=== PATIENT | male | born 1950 | race African-American/Black ===

== ENCOUNTER → 2017-11-29 | Outpatient (CLI) | payer MEDICARE, OTHER ==
[~2017-11-29] MED LIST: ALLO300T2 PO; APIX5TAB PO; ASPI81TA24 PO; ATOR80TA45 PO; CARV12.52 PO; EZET10 PO; FOLI400T PO; FOLI800T PO; OMEGCAP PO; SACU1TAB4 PO; VALS1TAB65 PO
--- NOTE | 2017-11-29 17:47 | EKG ---
Date Performed: 11/29/2017 Time Performed: 11:31:08 PTAGE: 67 years EKG: Sinus rhythm Inferior infarct - age undetermined Septal T wave changes are nonspecific Abnormal ECG PREVIOUS TRACING : 10/20/2016 12.59 Compared to prior tracing no significant change DOCTOR: Siobhan Bolanos Interpretating Date/Time 11/29/2017 17:46:45
== END ==
LOC: CPRE 11:11
PROVIDERS: ATTEND Surgery
DX: Z01.810 Encounter for preprocedural cardiovascular examination (principal); I65.23 Occlusion and stenosis of bilateral carotid arteries; R94.31 Abnormal electrocardiogram [ECG] [EKG]
CPT/HCPCS: 93005

== ENCOUNTER 2017-12-01 05:29 | Inpatient (IN) | payer OTHER, MEDICARE ==
[2017-12-01] VITALS (12 sets, daily range): BP systolic 138–158; BP diastolic 64–82; PULSE 73–90; RESP 18; TEMP 97.8–98.9; O2SAT 97–99
[~2017-12-01] VITALS: Ht 185.4 cm; Wt 88.9 kg
[~2017-12-01 05:29] MED LIST changes: -EZET10 PO; -FOLI400T PO; -OMEGCAP PO; -SACU1TAB4 PO
[2017-12-01] MEDS ORDERED: LACTATED RINGER'S 1000 ML IV PRN (06:00)
[2017-12-01] MEDS ORDERED: CHLORHEXIDINE GLUCONATE 2 % 1 PACK (2 CLOTHS) TOPICAL PRN (06:00)
[2017-12-01] MEDS ORDERED: SODIUM CHLORID 0.9% 500 ML IV PRN (06:00)
[2017-12-01] MEDS ORDERED: METOPROLOL TARTRATE 25 MG TAB PO PRN (06:00)
[2017-12-01] MEDS ORDERED: POVIDONE IODINE 5% (ANTISEPSIS KIT) 4 APPLICATIONS EACH NARE PRN (06:00)
--- NOTE | 2017-12-01 06:58 | PD.VS.PN ---
Pre-operative Note Pre-operative diagnosis: Asymptomatic L carotid stenosis Planned procedure: L CEA Interval History: Pt has been feeling good and no stroke, TIA symptoms. No change in health since I saw him in clinic. Labs: pending Blood: T&S Orders: NPO Ancef 2g IV OCTOR Post-operative destination: CVICU Operative site marked: Yes Consent: Informed consent has been obtained from Jas Castro Jr. I have explained the procedure in detail and discussed the risks, benefits, and potential complications. All questions have been answered. Patient contact information: [phone] Jas Jc MD Dec 01, 2017 06:58
[2017-12-01] MEDS ORDERED: HEPARIN SODIUM - IV 10,000 UNITS/10 ML VIAL ONE ×2 (07:07→09:29)
[2017-12-01] MEDS ORDERED: BUPIVACAINE HCL PF 0.5% 30 ML VIAL ONE (07:07)
[2017-12-01] MEDS ORDERED: HEPARIN-NS/PF INJ 500 ML ONE (07:07)
[2017-12-01] MEDS ORDERED: THROMBIN (TOPICAL) 20,000 UNIT SPRAY KIT ONE (07:07)
[2017-12-01] MEDS ORDERED: PROTAMINE SULFATE 50 MG/5 ML VIAL ONE ×2 (07:07→07:10)
[2017-12-01] MEDS ORDERED: ACETAMINOPHEN 1000 MG/100 ML 100 ML IV ONE (07:33)
[2017-12-01] MEDS ORDERED: NITROGLYCERIN INJ 5 ML ONE (07:34)
[2017-12-01] MEDS ORDERED: ceFAZolin INJ 1,000 MG VIAL IV ONE ×2 (08:32→14:11)
--- NOTE | 2017-12-01 10:37 | HHI.PR ---
cc: Jas Jc MD Immediate Post Op Note Procedure Date: Dec 01, 2017 Pre Op Diagnosis: LEFT carotid stenosis Post Op Diagnosis: LEFT carotid stenosis Surgeon: Jas Jc Cloth Picker(s): Chiquita Sol Procedure: L CEA Findings: proximal ICA plaque very small ICA Additional Information: Pt kasi well and [place] before leaving OR Complications: none apparent Specimen(s) removed: plaque, not for pathology Estimated blood loss: 100mL Anesthesia: General Drains: None Fluids: 2500mL IVF Urinary Output (mLs): 100 Patient to: PACU Patient Condition: Good Implant/Devices: SEE IMPLANT LOG (if applicable) Date/Time of Procedure: SEE SURGICAL CARE RECORD Jas Jc MD Dec 01, 2017 10:36
[2017-12-01] MEDS ORDERED: MORPHINE SULFATE 2 MG/ML INJ IV PUSH PRN (10:45)
[2017-12-01] MEDS ORDERED: MAGNESIUM HYDROXIDE SUSP 30 ML CUP PO PRN (10:45)
[2017-12-01] MEDS ORDERED: METOPROLOL TARTRATE 5 MG/5 ML VIAL IV PUSH PRN (10:45)
[2017-12-01] MEDS ORDERED: SENNOSIDES 8.6 MG TAB PO PRN (10:45)
[2017-12-01] MEDS ORDERED: HYDROmorphone HCL 2 MG TAB PO PRN (10:45)
[2017-12-01] MEDS ORDERED: LACTULOSE SYRUP 20 GM/30 ML CUP PO PRN (10:45)
[2017-12-01] MEDS ORDERED: hydrALAZINE HCL 20 MG/ML VIAL IV PUSH PRN (10:45)
[2017-12-01] MEDS ORDERED: BISACODYL 10 MG SUPP RECTAL PRN (10:45)
[2017-12-01] MEDS ORDERED: DO NOT ADM ANY ANTICOAGULANT DRUGS PRN (11:30)
[2017-12-01] MEDS ORDERED: hydrALAZINE HCL 20 MG/ML VIAL IV ONE (14:11)
[2017-12-01] MEDS ORDERED: SODIUM CHLOR 0.9% (EXCEL) INJ 250 ML IV ONE (14:11)
[2017-12-01] MEDS ORDERED: NORMOSOL R INJ 2,000 ML IV ONE (14:11)
[2017-12-01] MEDS ORDERED: PHENYLEPHRINE HCL 10 MG/ML VIAL IV ONE (14:11)
[2017-12-01] MEDS ORDERED: LIDOCAINE HCL 1% PF 5 ML AMPULE OTHER ONE (14:11)
[2017-12-01] MEDS ORDERED: PROPOFOL 200 MG/20 ML AMP IV ONE (14:11)
[2017-12-01] MEDS ORDERED: NS 500 ML (EXCEL BAG) INJ 500 ML IV ONE (14:11)
[2017-12-01] MEDS ORDERED: ROCURONIUM INJ 50 MG/5 ML VIAL IV ONE (14:11)
[2017-12-01] MEDS ORDERED: GLYCOPYRROLATE 1 MG/5 ML SYRINGE IV PUSH ONE (14:11)
[2017-12-01] MEDS ORDERED: ONDANSETRON HCL 4 MG/2 ML VIAL IV PUSH ONE (14:11)
[2017-12-01] MEDS ORDERED: NEOSTIGMINE 5 MG/5 ML SYRINGE IV PUSH ONE (14:11)
[2017-12-01] MEDS ORDERED: METOPROLOL TARTRATE 5 MG/5 ML VIAL IV PUSH ONE (14:11)
[2017-12-01] MEDS ORDERED: LACTATED RINGER'S 1000 ML INJ 1,000 ML IV ONE (14:11)
--- NOTE | 2017-12-01 20:38 | PD.CONS ---
[facility] Service Critical Care Medicine Consult Requested By Dr. Jc Reason for Consult management of comorbid conditions Primary Care Physician Leonid Silva History of Present Illness This is a 67-year-old male with coronary artery disease, ischemic cardiac myopathy and EF 20%, hypertension, hyperlipidemia, and dramatic carotid stenosis who is now postop day 0 status post elective left carotid endarterectomy. Intraoperative events were on, located. He arrives to the CVICU extubated in stable condition. I evaluated the patient and he denies any complaints, including any nausea, vomiting, headache, visual deficits, weakness. Review of Systems Constitutional: DENIES: Diaphoretic episodes, Fever, Chills Respiratory: DENIES: Apneas, Cough, Wheezing, Hemoptysis, Sputum production, Shortness of breath Cardiovascular: DENIES: Chest pain, Syncope, Dyspnea on Exertion, PND, Lower Extremity Edema, Claudication Gastrointestinal: DENIES: Abdominal pain, Constipation, Diarrhea, Nausea, Vomiting Neurologic: DENIES: Headache Psychiatric: DENIES: Confusion Past Family Social History Allergies: Coded Allergies: No Known Allergies (Verified Allergy, Unknown, 12/01/17) Past Medical History Hypertension Dyslipidemia Coronary artery disease Prior myocardial infarction [place] AICD Echo 06/2016: EF 20-25% Left leg stents Mild to moderate mitral regurgitation, tricuspid regurgitation Back pain GERD Gout Past Surgical History CABG 3 in 2010 By 12 appear Femoropopliteal bypass in the left Reported Medications Allopurinol 300 Mg Tab 300 Mg PO DAILY Atorvastatin (Atorvastatin Calcium) 80 Mg Tab 80 Mg PO HS Valsartan 160 Mg Tab 160 Mg PO DAILY Folic Acid 0.8 Mg Tab 1,000 Mcg PO DAILY Eliquis (Apixaban) 5 Mg Tab 5 Mg PO BID Carvedilol 12.5 Mg Tab 25 Mg PO BID Aspirin Enteric Coated Adult (Aspirin) 81 Mg Tabdr 1 Tab PO DAILY Active Ordered Medications See MAR Family History Reviewed and found to be noncontributory to his acute illness Social History Smokes one pack per day 50+ years 2 glasses wine each day Daily marijuana use Physical Exam Vital Signs Vital Signs Date Time Temp Pulse Resp B/P (MAP) Pulse Ox O2 Delivery O2 Flow Rate FiO2 12/01/17 19:00 82 12/01/17 19:00 98.9 82 18 138/64 (88) 97 12/01/17 18:53 80 12/01/17 18:09 90 12/01/17 16:08 76 12/01/17 15:20 77 12/01/17 15:20 97.8 77 18 152/73 (99) 97 12/01/17 14:13 75 12/01/17 14:02 99 Nasal Cannula 0.50 12/01/17 13:01 76 12/01/17 12:29 73 12/01/17 12:27 97.8 73 18 152/82 (105) 97 12/01/17 12:00 74 16 138/65 (89) 100 Nasal Cannula 2 12/01/17 11:45 74 16 139/63 (88) 100 Nasal Cannula 2 12/01/17 11:30 70 16 144/67 (92) 100 Nasal Cannula 2 12/01/17 11:15 74 16 147/67 (93) 100 Nasal Cannula 2 12/01/17 11:00 74 16 147/69 (95) 100 Nasal Cannula 2 12/01/17 10:49 98.6 74 16 162/74 (103) 100 Nasal Cannula 2 12/01/17 06:16 97.5 85 20 188/87 (120) 100 Physical Exam GENERAL: Middle-aged man, lying in bed, arousing from anesthesia HEENT: Normocephalic. Atraumatic. Pupils equal, round, reactive, conjugate. Mucous membranes are moist NECK: Trachea is midline. There is no JVD. There is a left incision over the anterior neck which is clean and dry without any evidence of hematoma CHEST: Equal unlabored. Nasal cannula oxygen. CARDIOVASCULAR: Normal rate, regular rhythm. Sinus by telemetry ABDOMEN: Soft, nontender, nondistended. No guarding. MUSCULOSKELETAL: Pulses 2+. No peripheral edema. NEUROLOGICAL: RASS 0. Awake alert, follows commands. No focal deficits. Moves all extremities. Musculoskeletal strength 5/5 in all extremities. Assessment and Plan Assessment and Plan Assessment: 67-year-old male postop day 0 status post left carotid endarterectomy. We'll admit the ICU for close monitoring. If he clinically remains stable we will restart home meds and advance diet with an anticipated discharge tomorrow. s/p left CEA 12/[address] Jc frequent neuro checks close BP monitoring HTN restart home anti-hypertensives Hyperlipidemia restart home statin Ischemic Cardiomyopathy, EF 20% judicious ivf. CAD restart home aspirin CBC in AM d/c ac and art line in AM advance diet OOB and ambulating CCM will follow along with you while patient remains in CVICU. Jj Joel MD Dec 01, 2017 20:38
[2017-12-01] MEDS: DOCUSATE SODIUM 50 MG/SENNA 8.6 MG TAB PO SCH (21:00)
[2017-12-01] MEDS ORDERED: ATORVASTATIN 80 MG TAB PO SCH (21:00)
[2017-12-01] MEDS: CARVEDILOL 12.5 MG TAB PO SCH (21:20)
[2017-12-01] MEDS: FAMOTIDINE 20 MG TAB PO SCH (21:21)
[2017-12-02 03:00] VITALS: BP 169/81; PULSE 80; RESP 18; TEMP 99; O2SAT 96
[2017-12-02 03:44] VITALS: PULSE 79
[2017-12-02 05:44] LABS: HEMATOCRIT 28.6 % (39.0-51.0); HEMOGLOBIN 9.2 GM/DL (13.0-17.0); MEAN CELL VOLUME 77.2 FL (80.0-100.0); MEAN CORPUSCULAR HEMOGLOBIN 24.9 PG (27.0-34.0); MEAN CORPUSCULAR HGB CONC 32.3 % (32.0-36.0); MEAN PLATELET VOLUME 9.3 FL (7.0-11.0); PLATELET COUNT 208 TH/MM3 (150-450); RED CELL DISTRIBUTION WIDTH 14.4 % (11.6-17.2); WHITE BLOOD COUNT 9.1 TH/MM3 (4.0-11.0)
[2017-12-02 05:52] LABS: BICARBONATE 26.8 MEQ/L (21.0-32.0); CREATININE 0.76 MG/DL (0.60-1.30)
--- NOTE | 2017-12-02 06:47 | MP ---
cc: MALLORY JC MD DATE OF SURGERY 12/01/2017 PREOPERATIVE DIAGNOSIS Left carotid stenosis, asymptomatic. POSTOPERATIVE DIAGNOSIS Left carotid stenosis, asymptomatic. PROCEDURE Left carotid endarterectomy ATTENDING PHYSICIAN Mallory Jc MD SEISMIC PROSPECTING OBSERVER HELPER SURGEON Chiquita Sol ANESTHESIA General INDICATIONS Mr. Castro is a gentleman with high-grade left carotid stenosis who presents for carotid endarterectomy. A long discussion was had with the patient about the risks and benefits of the prophylactic carotid endarterectomy and we agreed to proceed. DESCRIPTION OF THE PROCEDURE Informed consent obtained from the patient. He was taken to the operating room, placed supine on the operating room table. An appropriate time-out was taken to ensure the patient's identity, operative site and planned procedure. The administration of two grams of Ancef was initiated prior to skin incision and will be discontinued after a single preoperative dose. Everyone in the room agreed with the time-out and we proceeded. His left neck was prepped and draped and an incision was made along the anterior border of the sternocleidomastoid and carried down through the subcutaneous tissue with electrocautery. The sternocleidomastoid was retracted laterally and the carotid artery was identified. It was dissected free from the common carotid artery up to the bifurcation. The hypoglossal nerve was carefully protected. The internal carotid artery was noted to be quite diminutive, but soft. The external carotid artery and superior thyroid artery were all dissected free. The patient was systemically heparinized and the ACT was confirmed to be greater than 250. With the patient systemically heparinized, the distal and proximal carotid arteries were clamped with profunda clamps and the external and superior thyroid were also clamped. A longitudinal arteriotomy was made from the common carotid artery extending up to the internal carotid artery and the entire bifurcation was endarterectomized without difficulty. A reasonable endpoint was obtained and the arteriotomy was closed with a bovine pericardial patch which was sewn on using a running 5-0 Prolene suture. Throughout the entire cross-clamping and patch, there were no EEG changes. At the completion, the patch was flushed, noted to be hemostatic. The clamps released in conjunction with anesthesia. The patch was noted be hemostatic with release of the clamps and the wound was irrigated, infiltrated with Marcaine and closed with 2-0 Polysorb, 3-0 Polysorb, and 4-0 Monocryl. The sponge, needle counts were correct at the end of the case. I was present, scrubbed and performed the entire procedure. At the conclusion of the case, the patient was extubated and awoken neurologically intact. I MD NITHYA Moreira/DONN /9:04 PM /6:15 AM MTDD
[2017-12-02] MEDS: CARVEDILOL 12.5 MG TAB PO SCH (07:05)
[2017-12-02 07:10] VITALS: BP 183/87; PULSE 82; RESP 18; TEMP 97.5; O2SAT 93
--- NOTE | 2017-12-02 07:15 | PD.VS.PN ---
Subjective POD #: 1 Procedure(s): L CEA Subjective/Hospital Course doing great; no MARIANO or other neuro symptoms kasi po OOB TC already today voided since [place] out yesterday Objective Vitals/I&O Date Time Temp Pulse Resp B/P (MAP) Pulse Ox O2 Delivery O2 Flow Rate FiO2 12/02/17 04:00 18 12/02/17 03:44 79 12/02/17 03:00 99.0 80 18 169/81 (110) 96 12/01/17 23:00 98.8 79 18 158/76 (103) 97 12/01/17 23:00 84 12/01/17 21:52 98 Nasal Cannula 1.00 12/01/17 19:00 82 12/01/17 19:00 98.9 82 18 138/64 (88) 97 12/01/17 18:53 80 12/01/17 18:09 90 12/01/17 16:08 76 12/01/17 15:20 77 12/01/17 15:20 97.8 77 18 152/73 (99) 97 12/01/17 14:13 75 12/01/17 14:02 99 Nasal Cannula 0.50 12/01/17 13:01 76 12/01/17 12:29 73 12/01/17 12:27 97.8 73 18 152/82 (105) 97 12/01/17 12:00 74 16 138/65 (89) 100 Nasal Cannula 2 12/01/17 11:45 74 16 139/63 (88) 100 Nasal Cannula 2 12/01/17 11:30 70 16 144/67 (92) 100 Nasal Cannula 2 12/01/17 11:15 74 16 147/67 (93) 100 Nasal Cannula 2 12/01/17 11:00 74 16 147/69 (95) 100 Nasal Cannula 2 12/01/17 10:49 98.6 74 16 162/74 (103) 100 Nasal Cannula 2 12/02/17 12/02/17 12/02/17 07:00 15:00 23:00 Intake Total 960 ml Output Total 700 ml Balance 260 ml Exam: Neuro intact L neck incision soft, c/d/i Laboratory Laboratory Tests Test 12/02/17 04:08 White Blood Count 9.1 Red Blood Count 3.70 Hemoglobin 9.2 Hematocrit 28.6 Mean Corpuscular Volume 77.2 Mean Corpuscular Hemoglobin 24.9 Mean Corpuscular Hemoglobin Concent 32.3 Red Cell Distribution Width 14.4 Platelet Count 208 Mean Platelet Volume 9.3 Blood Urea Nitrogen 7 Creatinine 0.76 Random Glucose 116 Calcium Level 8.0 Sodium Level 140 Potassium Level 3.2 Chloride Level 105 Carbon Dioxide Level 26.8 Anion Gap 8 Estimat Glomerular Filtration Rate 125 Assessment and Plan Plan Resume all home medications D/C today Discharge Planning today Jas Jc MD Dec 02, 2017 07:15
--- NOTE | 2017-12-02 07:17 | PD.VS.DC ---
Discharge Summary Admission Date: Dec 01, 2017 at 05:29 Discharge Date: Dec 02, 2017 Admission Diagnosis: (1) Carotid stenosis, left Discharge Diagnosis: (1) Carotid stenosis, left ICD Codes: I65.22 - Occlusion and stenosis of left carotid artery Brief History from admission The patient has a 80% asymptomatic LEFT carotid stenosis and was offered CEA after discussion of risks and benefits. Procedure(s): L CEA Significant Findings Laboratory Tests Test 12/02/17 04:08 Red Blood Count 3.70 MIL/MM3 (4.50-5.90) Hemoglobin 9.2 GM/DL (13.0-17.0) Hematocrit 28.6 % (39.0-51.0) Mean Corpuscular Volume 77.2 FL (80.0-100.0) Mean Corpuscular Hemoglobin 24.9 PG (27.0-34.0) Random Glucose 116 MG/DL (74-106) Calcium Level 8.0 MG/DL (8.5-10.1) Potassium Level 3.2 MEQ/L (3.5-5.1) Hospital Course: LEFT CEA performed without difficulty. Post-operatively, pt remained neuro intact, pain controlled. No MARIANO. No swallowing trouble and voiding spontaneously. Ready for D/C POD#1. Discharge Condition: Good Discharge Disposition: Discharge Home Any questions or concerns: Call [facility] [phone] Jas Jc MD Dec 02, 2017 07:17
[2017-12-02 07:24] VITALS: O2SAT 94
[2017-12-02] MEDS: FAMOTIDINE 20 MG TAB PO SCH (08:19)
[2017-12-02] MEDS: DOCUSATE SODIUM 50 MG/SENNA 8.6 MG TAB PO SCH (08:20)
[2017-12-02] MEDS ORDERED: ASPIRIN EC 81 MG TABEC PO SCH (09:00)
[2017-12-02] MEDS ORDERED: FOLIC ACID 1 MG TAB PO SCH (09:00)
[2017-12-02] MEDS ORDERED: ALLOPURINOL 300 MG TAB PO SCH (09:00)
[2017-12-02] MEDS ORDERED: VALSARTAN 160 MG TAB PO SCH (09:00)
[2017-12-02] MEDS ORDERED: ENOXAPARIN SODIUM 40 MG/0.4 ML SYRINGE SQ SCH (10:00)
== END 2017-12-02 10:30 | disposition home or self-care (01) | DRG 39 ==
LOC: HSDI 05:29 → HCVI 12:09
PROVIDERS: ADMIT Surgery; ATTEND Surgery
PROC: 03UJ0KZ Supplement Left Common Carotid Artery with Nonautologous Tissue Substitute, Open Approach (ICD-10-PCS; 2017-12-01)
PROC: 03CJ0ZZ Extirpation of Matter from Left Common Carotid Artery, Open Approach (ICD-10-PCS; principal; 2017-12-01 08:00)
DX: I65.22 Occlusion and stenosis of left carotid artery (principal); I08.1 Rheumatic disorders of both mitral and tricuspid valves; I10 Essential (primary) hypertension; E78.5 Hyperlipidemia, unspecified; M10.9 Gout, unspecified; H40.9 Unspecified glaucoma; I25.2 Old myocardial infarction; F17.210 Nicotine dependence, cigarettes, uncomplicated; I25.10 Atherosclerotic heart disease of native coronary artery without angina pectoris; I25.5 Ischemic cardiomyopathy; K21.9 Gastro-esophageal reflux disease without esophagitis; Z79.82 Long term (current) use of aspirin; Z95.810 Presence of automatic (implantable) cardiac defibrillator; Z95.1 Presence of aortocoronary bypass graft; R94.31 Abnormal electrocardiogram [ECG] [EKG]
CPT/HCPCS: 80048; 85027; 86850; 86900; 86901; 93005; J0131; J0360; J0690; J1644; J1650; J2370; J2405; J2710; J2720; J3010; J7040; J7050; J7120